=== PATIENT | female | born 1950 | race Caucasian/White ===

== ENCOUNTER → 2016-08-11 | Outpatient (CLI) | payer OTHER, MEDICARE | LOC: BHFA 09:00 | PROVIDERS: ATTEND Internal Medicine Cardiovascular Disease | DX: I48.91 Unspecified atrial fibrillation (principal) ==

== ENCOUNTER → 2016-08-18 | Outpatient (CLI) | payer OTHER, MEDICARE | LOC: BHFA 09:30 | PROVIDERS: ATTEND Internal Medicine Cardiovascular Disease | DX: I48.91 Unspecified atrial fibrillation (principal) ==

== ENCOUNTER → 2016-09-29 | Outpatient (CLI) | payer OTHER, MEDICARE | LOC: BHFA 09:00 | PROVIDERS: ATTEND Internal Medicine Cardiovascular Disease | DX: R00.2 Palpitations (principal) ==

== ENCOUNTER → 2017-04-17 | Outpatient (CLI) | payer OTHER, MEDICARE | LOC: FIMAGING 13:24 → EDSTATUS 13:25 | PROVIDERS: ATTEND Internal Medicine Hematology & Oncology | DX: R07.81 Pleurodynia (principal); Z80.3 Family history of malignant neoplasm of breast ==

== ENCOUNTER 2017-05-26 12:57 | Emergency (ER) | payer OTHER, MEDICARE ==
[2017-05-26 13:05] VITALS: BP 125/100; PULSE 88; RESP 18; TEMP 97.5; O2SAT 95
--- NOTE | 2017-05-26 13:08 | EDPHY ---
H & P Stated Complaint: FALL HIT L RIBS AGAINST RIM OF TUB Time Seen by Provider: 05/26/17 13:06 HPI/ROS: CHIEF COMPLAINT: Left rib and pelvic pain following a mechanical fall HISTORY OF PRESENT ILLNESS: The patient presents to the ED with complaints of left rib and pelvic pain following a mechanical fall. The patient reports mildly pleuritic chest pain. She did not strike her head or lose consciousness. She denies any headache, neck pain, numbness or weakness. The patient has been ambulatory since the fall. She complains of mild pain over her left anterior superior iliac crest. The patient denies any complaints of low back pain. She states her symptoms are worsened with movement and palpation. REVIEW OF SYSTEMS: A comprehensive 10 point review of systems is otherwise negative aside from elements mentioned in the history of present illness. Source: Patient - Personal History Current Tetanus/Diphtheria Vaccine: Unsure - Medical/Surgical History Hx Asthma: No Hx Chronic Respiratory Disease: No Hx Diabetes: No Hx Cardiac Disease: Yes Hx Renal Disease: No Hx Cirrhosis: No Hx Alcoholism: No Hx HIV/AIDS: No Hx Splenectomy or Spleen Trauma: No Other PMH: breast cancer/AFIB - Social History Smoking Status: Never smoked - Physical Exam Exam: General Appearance: Alert, no distress Head: Atraumatic Eyes: Pupils equal, round, reactive ENT, Mouth: No hemotympanum, no oral trauma Neck: Nontender, trachea midline Respiratory: Tenderness to palpation left anterior chest wall, no subcutaneous emphysema Cardiovascular: Regular rate and rhythm Abdomen: Abdomen is soft and nontender, tenderness to palpation over the left anterior superior iliac crest Skin: Bruising and ecchymosis noted to the left leg Back: No midline T/L/S pain Extremities: Nontender, full range of motion Neurological: A&Ox3, normal motor function, normal sensory exam Constitutional: Initial Vital Signs Temperature (C) 36.4 C 05/26/17 13:01 Heart Rate 88 05/26/17 13:01 Respiratory Rate 18 05/26/17 13:01 Blood Pressure 125/100 H 05/26/17 13:01 O2 Sat (%) 95 05/26/17 13:01 O2 Delivery Mode Room Air Allergies/Adverse Reactions: latex Allergy (Verified 05/26/17 13:01) Penicillins Allergy (Verified 05/26/17 13:01) iv contrast Allergy (Uncoded 12/26/14 11:11) Home Medications: Medication Instructions Recorded Aspirin 81mg (*) 05/26/17 Medical Decision Making - Diagnostics Imaging Results: Chest x-ray PA lateral: Images reviewed by myself, negative for pneumothorax, rib fracture, hemothorax or acute abnormality. Impression: Normal Pelvic x-ray AP: Images reviewed by myself, negative for fracture, dislocation or acute abnormality. Impression: Normal ED Course/Re-evaluation: The patient presents to the ED with complaints of left rib pain and pelvic pain following a mechanical fall. The patient did not strike her head or lose consciousness. She arrives to the emergency department with a GCS of 15. I have cleared her cervical spine via [employer] criteria. The patient was taken for a chest x-ray which was reviewed by myself. It demonstrates no evidence of an obvious rib fracture, pneumothorax or hemothorax. Additionally the patient had a x-ray of her pelvis which demonstrates no evidence of an acute fracture. The patient has a benign abdominal examination is stable vital signs. I do not feel that additional imaging is indicated at this point time. Patient will be advised to take Tylenol and ibuprofen as needed for management of her symptoms. She should ice the area of pain and swelling. The patient is advised to return to the ED for any difficulty breathing or worsening symptoms. Differential Diagnosis: Differential diagnosis considered includes rib fracture, pneumothorax, hemothorax, chest wall contusion, pelvic fracture, dislocation Departure - Departure Disposition: Home, Routine, Self-Care Clinical Impression: Rib injury, Contusion of leg, left Condition: Good Instructions: Contusion in Adults (ED) Additional Instructions: 1. Your x-ray demonstrates no evidence of an obvious fracture. You certainly could have a rib fracture which is not seen on the x-ray today. The treatment for these type of injuries is conservative with instructions to use Tylenol and ibuprofen as needed for pain. 2. Please return to the ED for markedly worsening symptoms, difficulty breathing or other concerns. Referrals: Radha Ward MD [Primary Care Provider] - As per Instructions
== END 2017-05-26 14:01 | disposition home or self-care (01) ==
DX: S29.9XXA Unspecified injury of thorax, initial encounter (principal); S80.12XA Contusion of left lower leg, initial encounter; Z85.3 Personal history of malignant neoplasm of breast; Z91.040 Latex allergy status; W18.39XA Other fall on same level, initial encounter

== ENCOUNTER → 2017-10-04 | Outpatient (CLI) | payer OTHER, MEDICARE | LOC: FIMAGING 14:52 | PROVIDERS: ATTEND Family Medicine | DX: Z12.31 Encounter for screening mammogram for malignant neoplasm of breast (principal); Z85.3 Personal history of malignant neoplasm of breast ==